=== PATIENT | female | born 1980 | race Two or more races ===

== ENCOUNTER 2017-06-14 13:08 | Outpatient (CLI) | payer OTHER | END 2017-06-14 13:12 | disposition home or self-care (01) | LOC: MAMO-SONO 13:08 | DX: N60.11 Diffuse cystic mastopathy of right breast (principal); N60.12 Diffuse cystic mastopathy of left breast ==

== ENCOUNTER 2018-03-17 00:43 | Emergency (ER) | payer OTHER ==
[~2018-03-17] VITALS: Ht 172.7 cm; Wt 72.6 kg
[2018-03-17] MEDS ORDERED: ZOFRAN ODT8 MG PO (04:13)
[2018-03-17] MEDS ORDERED: OSEL75CA PO (04:13)
== END 2018-03-17 04:23 | disposition home or self-care (01) ==
LOC: ER 00:43
DX: J11.1 Influenza due to unidentified influenza virus with other respiratory manifestations (principal); B34.9 Viral infection, unspecified

== ENCOUNTER 2019-05-12 09:21 | Outpatient (CLI) | payer OTHER ==
[~2019-05-12 09:21] MED LIST: OSEL75CA PO; ZOFRAN ODT8 MG PO
== END 2019-05-12 09:30 | disposition home or self-care (01) ==
LOC: MAMO-SONO 09:21
DX: Z12.31 Encounter for screening mammogram for malignant neoplasm of breast (principal); N60.11 Diffuse cystic mastopathy of right breast; N60.12 Diffuse cystic mastopathy of left breast; N83.02 Follicular cyst of left ovary

== ENCOUNTER 2021-03-28 09:39 | Outpatient (CLI) | payer OTHER | END 2021-03-28 09:52 | disposition home or self-care (01) | LOC: MAMO-SONO 09:39 | PROVIDERS: ATTEND General Practice | DX: N60.11 Diffuse cystic mastopathy of right breast (principal); Z12.31 Encounter for screening mammogram for malignant neoplasm of breast ==

== ENCOUNTER 2023-05-08 19:37 | Emergency (ER) | payer OTHER ==
[~2023-05-08] VITALS: Ht 172.7 cm; Wt 76.2 kg
[2023-05-08] MEDS ORDERED: ONDANSETRON HCL 2 MG/ML VIAL IV ONE (22:45)
[2023-05-08] MEDS ORDERED: BUTALB/ACETAMINOPHEN/CAFFEINE 1 TAB TABLET PO ONE (22:45)
[2023-05-08] MEDS ORDERED: FAMOTIDINE/PF 20 MG/2 ML VIAL IV PUSH ONE (22:45)
[2023-05-08 23:12] LABS: HEMATOCRIT 36.5 % (36.0-45.00); HEMOGLOBIN 12.4 g/dL (12.0-15.00); MEAN CELL VOLUME 87.2 fL (80.00-100.00); MEAN CORPUSCULAR HEMOGLOBIN 29.5 pg (27.00-32.0); MEAN CORPUSCULAR HGB CONC 33.8 g/dl (32.0-36.0); PLATELET COUNT 182 K/uL (150-450); RED BLOOD COUNT 4.19 M/uL (4.00-6.00)
[2023-05-08 23:51] LABS: ALBUMIN 3.4 gm/dL (3.4-5.0); BILIRUBIN TOTAL 0.41 mg/dL (0.3-1.2); CALCIUM 8.7 mg/dL (8.5-10.1); CREATININE SERUM 0.58 mg/dL (0.55-1.02); GFR 114.56; GLOBULINA 3.6 G/DL (2.4-3.5); POTASSIUM 3.8 mEq/L (3.5-5.1)
[2023-05-09] MEDS ORDERED: KETOROLAC TROMETHAMINE 60 MG VIAL IM ONE (00:30)
[2023-05-09] MEDS ORDERED: DOLOGESIC-DF 51 EACH PO (04:47)
[2023-05-09] MEDS ORDERED: ONDANSETRON ODT8 MG PO (04:47)
== END 2023-05-09 04:55 ==
LOC: ER 19:37
PROVIDERS: Emergency Medicine
DX: G43.809 Other migraine, not intractable, without status migrainosus (principal); Z91.013 Allergy to seafood; Z91.041 Radiographic dye allergy status; Z91.048 Other nonmedicinal substance allergy status; M32.8 Other forms of systemic lupus erythematosus; M19.90 Unspecified osteoarthritis, unspecified site

== ENCOUNTER 2023-12-23 16:44 | Emergency (ER) | payer OTHER ==
[~2023-12-23] VITALS: Ht 172.7 cm; Wt 62.1 kg
[~2023-12-23 16:44] MED LIST changes: +DOLOGESIC-DF 51 EACH PO; +ONDANSETRON ODT8 MG PO
[2023-12-23 19:36] LABS: HEMATOCRIT 35.3 % (36.0-45.00); MEAN CELL VOLUME 85.6 fL (80.00-100.00); MEAN CORPUSCULAR HEMOGLOBIN 29.2 pg (27.00-32.0); PLATELET COUNT 198 K/uL (150-450); RED BLOOD COUNT 4.12 M/uL (4.00-6.00); RED CELL DISTRIBUTION WIDTH 13.4 % (11.5-14.5)
[2023-12-23 19:53] LABS: ALBUMIN 3.6 gm/dL (3.4-5.0); BILIRUBIN TOTAL 0.32 mg/dL (0.3-1.2); CALCIUM 8.8 mg/dL (8.5-10.1); CREATININE SERUM 0.74 mg/dL (0.55-1.02); GFR 86.06; GLOBULINA 3.9 G/DL (2.4-3.5); POTASSIUM 3.96 mEq/L (3.5-5.1); TOTAL PROTEIN 7.5 gm/dL (6.4-8.2)
[2023-12-24] MEDS ORDERED: ENOXAPARIN SODIUM 100 MG/ML SYRINGE SUBCUTANEO ONE (00:15)
== END 2023-12-24 11:46 | disposition home or self-care (01) ==
LOC: ER 16:45
PROVIDERS: Preventive Medicine Public Health & General Preventive Medicine
DX: M25.562 Pain in left knee (principal); Z88.5 Allergy status to narcotic agent; Z91.013 Allergy to seafood; Z91.038 Other insect allergy status; Z91.041 Radiographic dye allergy status